=== PATIENT | male | born 1940 | race Hispanic/Latino ===

== ENCOUNTER 2016-06-18 12:46 | Inpatient (IN) | payer MEDICARE, OTHER ==
[2016-06-18 13:25] LABS: Blood Urea Nitrogen 31 mg/dL (9-20)
--- NOTE | 2016-06-18 14:30 | Cat Scan Report ---
CTA chest: Transverse images are obtained from lower chest to the upper abdomen with coronal and sagittal 2-D reformatted images and a 3-D MIP image. History: Renal cancer presenting with right chest wall bleeding related to a nonfunctioning vascular shunt. Comparison is made to the prior study of January 24, 2016. There is good opacification of the pulmonary vessels, cardiac chambers, thoracic aorta. There no pulmonary or cardiac chamber filling abnormalities. The thoracic aorta is normal in size and contour with smooth significant mural calcification. No adenopathy. The patient has a generally dilated air filled esophagus with a moderate hiatus hernia. On the prior study the patient had multiple noncalcified pulmonary nodules consistent with metastatic disease these have resolved. There is however a small right effusion with bibasilar atelectasis on the right which was not present. The patient has a right subclavian shunt which extends along the right chest wall and has been previously amputated near the lower chest. The distal portion was removed. Only the proximal few centimeters of the shunt are opacified and then occludes. There is swelling of the soft tissues around the proximal shunt with a small amount of gas noted within the shunt and also around the shunt. At the level of the hemidiaphragm the shunt is occluded and amputated. There is additional gas within and around the shunt at this location and there appears to be ulceration of the wall and a bandage. Compared to the prior examination the swelling of the soft tissues and the air are new. Sections in the upper abdomen demonstrates a stable small left hepatic lobe cyst. There is a right nephrectomy. Impressions: 1. The amputated right axillary shunt demonstrates signs of diffuse infection. 2. Interval resolution of metastatic pulmonary nodules. 3. Interval development of right basilar pulmonary atelectasis and effusion.
[2016-06-18] MEDS ORDERED: NARCAN 0.4 MG/1 ML IV PRN (15:52)
[2016-06-18] MEDS ORDERED: MORPHINE IV PRN ×2 (15:52)
[2016-06-18] MEDS ORDERED: NORCO 5/325 PO PRN (15:52)
--- NOTE | 2016-06-18 16:36 | History and Physical Report ---
History of Present Illness Date of examination: 06/18/16 History of present illness: This patient is a 75-year-old male that presented to our office with a same day appointment due to an acute onset of bleeding from a broken down right flank incision. The patient is well-known to our service. He's had multiple vascular surgeries in the past. He has a thrombosed right axillary to femoral bypass which was partially resected in the past. His mid flank access incision has since broken down. He developed bright red bleeding from the incision last night which has since stopped. Following evaluation in our office , a stat CT scan was ordered. This shows gas surrounding the graft material. He will be admitted with concerns of a bypass graft infection. Past History Past Medical History: cancer (renal cancer), hypertension, hyperlipidemia, PVD, other (cardiomyopathy) Past Surgical History: Other (Multiple vascular procedures in the past including an aortobifemoral bypass, femorofemoral bypass, multiple bypass graft thrombectomies (both open and percutaneous), re-operative bypass procedures, bilateral [id number] amputation, nephrectomy) Social history: , lives with family. denies: smoking (quit smoking several years ago), alcohol abuse (drinks alcohol occasionally) Family history: hypertension Medications and Allergies Allergies Allergy/AdvReac Type Severity Reaction Status Date / Time adhesive tape Allergy Rash Verified 08/26/15 11:36 folic acid Allergy Rash Verified 04/26/15 10:28 latex Allergy Rash Verified 09/12/14 10:02 penicillin G Allergy Rash Verified 09/12/14 10:02 Home Medications Medication Instructions Recorded Confirmed Last Taken Type Simvastatin 20 mg PO HS 08/13/14 02/18/16 02/17/16 History 20mg Multivitamin [Multi-Vitamin Daily] 1 tab PO DAILY 09/12/14 02/18/16 02/17/16 History 1 tab Escitalopram [Lexapro] 10 mg PO DAILY 04/11/15 02/18/16 02/17/16 History 10mg Gabapentin 600 mg PO TID 04/11/15 02/18/16 02/17/16 History 600mg Amiodarone [Cordarone 200 MG TAB] 200 mg PO BID #60 tablet 05/02/15 06/17/15 Unknown Rx Furosemide [Lasix TAB] 20 mg PO QDAY #30 tablet 05/02/15 06/17/15 Unknown Rx ISOSORBIDE MONOnitrate [Imdur ER] 30 mg PO QDAY #30 tablet 05/02/15 02/18/1610/27 Rx 30mg Metoprolol [Lopressor TAB] 25 mg PO BID #60 tablet 05/02/15 06/17/15 Unknown Rx Ranolazine ER [Ranexa ER] 500 mg PO BID #60 tablet 05/02/15 06/17/15 Unknown Rx Warfarin [Coumadin] 3 mg PO DAILY@1700 #30 tablet 05/02/15 06/17/15 Unknown Rx oxyCODONE /ACETAMINOPHEN [Percocet 1 tab PO Q4H PRN #30 tablet 05/02/15 Unknown Rx 5/325 mg] Lisinopril [Zestril TAB] 20 mg PO QDAY 06/18/15 02/18/16 02/18/16 05:30 History Temazepam 15 mg PO QHS PRN 06/18/15 02/18/16 02/17/16 History 15mg Dabigatran [Pradaxa] 150 mg PO BID #60 capsule 06/24/15 02/18/16 02/15/16 Rx 150mg Aspirin EC [Aspirin Enteric Coated 81 mg PO QDAY 02/18/16 02/18/16 02/11/16 History TAB] 81mg Oxycodone HCl/Acetaminophen 1 tab PO Q6H 02/18/16 02/18/16 02/18/16 07:59 History [OxyCODONE-Acetaminophen 10-325] 1 tab Active Meds: Active Medications Acetaminophen/Hydrocodone Bitart (Walker 5/325) 2 each PO Q6H PRN PRN Reason: Pain, Moderate (4-6) Levofloxacin/Dextrose (Levaquin 750mg/150ml) 150 mls @ 100 mls/hr IV Q24HR DONN PRN Reason: Protocol Vancomycin HCl (Vancomycin/Ns 1 Gm/250 Ml) 250 mls @ 167 mls/hr IV ONCE ONE Stop: 06/18/16 18:29 Morphine Sulfate (Morphine) 2 mg IV Q4H PRN PRN Reason: Pain, Moderate (4-6) Morphine Sulfate (Morphine) 4 mg IV Q4H PRN PRN Reason: Pain , Severe (7-10) Naloxone HCl (Narcan 0.4 Mg/1 Ml) 0.1 mg IV Q2MIN PRN PRN Reason: Res Rate </= 8 or 02 SAT < 92% Review of Systems All systems: negative Exam - Constitutional General appearance: Present: no acute distress - EENT Eyes: Present: EOM intact ENT: hearing intact - Neck Neck: Present: supple - Respiratory Respiratory effort: normal - Extremities Extremities: abnormal (bilateral [id number] amputation) - Abdominal General gastrointestinal: Present: soft (is a right mid flank incision without surrounding erythema, and no appreciated active drainage. He has a retained portion of the axillofemoral bypass superior to this incision) - Psychiatric Psychiatric: appropriate mood/affect, intact judgment & insight, cooperative - Neurologic Neurologic: no focal deficits Results - Labs CBC & Chem 7: 06/18/16 13:05 Labs: Abnormal lab results 06/18/16 Range/Units 13:05 BUN 31 H (9-20) mg/dL Assessment and Plan This patient is a vasculopath status post multiple vascular procedures in the past. This included a right axillary to femoral artery bypass which subsequently thrombosed and required partial resection due to infection. He has since broken down a mid right flank incision. He developed acute onset of bright red bloody drainage from the incision last night. This subsequently stopped. He followed up in our office. A stat CT scan was ordered. This showed perigraft gas concerning for bypass infection. This bleeding may represent a Daniel bleed. The patient will be admitted. We'll place a consult to infectious disease service. We'll consider partial graft excision versus complete removal with arterial patch angioplasty. Unfortunately, the patient is relatively frail and currently on chemotherapy. Excision of the full graft would be an extensive procedure which he may not tolerate. This has been discussed with the patient as well as his . They state understanding, and agreed to proceed. - Patient Problems (1) Infection of vascular bypass graft Current Visit: No Status: Acute Qualifiers: Encounter type: initial encounter Qualified Code(s): T82.7XXA - Infection and inflammatory reaction due to other cardiac and vascular devices, implants and grafts, initial encounter (2) Cardiomyopathy Current Visit: No Status: Chronic (3) HTN (hypertension) Current Visit: No Status: Chronic Qualifiers: Hypertension type: essential hypertension Qualified Code(s): I10 - Essential (primary) hypertension (4) Hyperlipidemia Current Visit: No Status: Chronic Qualifiers: Hyperlipidemia type: unspecified hyperlipidemia Qualified Code(s): E78.5 - Hyperlipidemia, unspecified (5) Kidney malignancy Current Visit: Yes Status: Acute (6) Atherosclerosis of [place] artery of extremity Current Visit: Yes Status: Acute
[2016-06-18] MEDS ORDERED: VANCOMYCIN/NS 1 GM/250 ML 250 ML IV ONE (17:00)
[2016-06-18 17:11] LABS: Hematocrit 29.2 % (35.5-45.6); Hemoglobin 9.6 gm/dl (11.8-15.2); Mean Corpuscular HGB Conc 33 % (32-34); Mean Corpuscular Hemoglobin 34 pg (28-32); Mean Corpuscular Volume 103 fl (84-94); Platelet Count 117 K/mm3 (140-440); Red Blood Count 2.83 M/mm3 (3.65-5.03); Red Cell Distribution Width 20.6 % (13.2-15.2); White Blood Count 7.1 K/mm3 (4.5-11.0)
[2016-06-18 17:21] LABS: INR 1.18 (0.87-1.13)
[2016-06-18 17:22] LABS: Partial Thromboplastin Time 29.5 Sec. (24.2-36.6)
[2016-06-18 17:27] LABS: Anion Gap 15 mmol/L; Blood Urea Nitrogen 30 mg/dL (9-20); Calcium 7.6 mg/dL (8.4-10.2); Carbon Dioxide 28 mmol/L (22-30); Chloride 100.5 mmol/L (98-107); Glucose 126 mg/dL (75-100); Potassium 4.7 mmol/L (3.6-5.0); Sodium 139 mmol/L (137-145)
[2016-06-18] MEDS: LEVAQUIN 750MG/150ML 150 ML IV SCH (18:38)
[2016-06-18] MEDS ORDERED: NEURONTIN PO SCH (22:00)
[2016-06-18] MEDS: PERCOCET 5/325 PO PRN (22:08)
[2016-06-18] MEDS ORDERED: ASPIRIN PO ONE (22:26)
[2016-06-18] MEDS: RESTORIL PO PRN (23:23)
[2016-06-18] MEDS: ZOCOR PO SCH (23:23)
[2016-06-18] MEDS: NEURONTIN PO SCH (23:26)
--- NOTE | 2016-06-19 09:02 | Admit Criteria Form ---
Admission Criteria Documentation: AMBULATORY SURGERY EXCEPTION CRITERIA Ambulatory Surgery Exception Criteria ( Place 'X' for any and all applicable criteria): Surgery or procedure performed on ambulatory basis may require inpatient stay for[A] ANY ONE of the following(1)(2)(3)(4)(5)(6)(7)(8)(9): [X] I. A preoperative situation, condition, or finding that warrants inpatient stay as indicated by ANY ONE of the following: [X] a) Inpatient care needed because of severity of a disease or condition rather than the surgery (eg, severe cardiac or respiratory disease, severe infection) (15) (16 ) (17) (18) [] b) Emergent procedure (eg, angioplasty for acute ischemia)(19) [] c) Complex surgical approach or situation as indicated by ANY ONE of the following(3): [] i) Open approach needed instead of usual endoscopic, transcatheter, or other less invasive procedure [] ii) Difficult approach because of previous operation [] iii) Airway monitoring required after open neck procedures(20)(21) [] iv) Large mass requiring unusually extensive dissection [] v) Additional complicating feature requiring inpatient care (eg, drain management)(22(23): [] d) Major surgery in a pt with high anesthetic risk as indicated by ANY ONE of the following (2)(3)(5)(7)(8): [] i) ASA risk class III or higher (severe systemic disease impairing function) [D] [] ii) Advanced age (eg, older than 85 years)(14)(24) [] iii) Symptomatic heart failure(25) [] iv) Symptomatic asthma or COPD(8)(21) [] v) Morbid obesity with hemodynamic or respiratory problems(20)( 21)(26)(27) [] vi) Obstructive sleep apnea(20)(21) [] vii) Former premature infants who are younger than 60 weeks [] viii) High risk for severe postoperative abnormalities (eg, severe postoperative hypocalcemia after parathyroidectomy for severe hyperparathyroidism)(27)( 28) [] ix) Unstable angina(25) [] e) Drug-related risk requiring inpatient stay as indicated by ANY ONE of the following(5)(10)(14)(32)(33) [] i) Procedure requires discontinuing drugs or other therapy (eg , antiarrhythmic medication, antiseizure medication), which necessitates inpatient observation or treatment.(18)(31) [] ii) Major surgery and high risk drug use as indicated by ANY ONE of the following: [] 1) Active abuse of cocaine or similar drug [] 2) Monoamine oxidase inhibitor use [] 3) Other drug identified as posing risk [] f) Inadequate outpatient care situation as indicated by ANY ONE of the following(5)(10)(14)(32)(33) [] i) Patient lives remote from medical facility and procedure has urgent complication potential, and temporary nearby residence cannot be arranged [] ii) Patient will have postprocedure incapacitation and inadequate assistance at home, or alternative level of care cannot be arranged. [] iii) Patient will have long general anesthesia or procedure side effect resolution time, and competent person to stay with patient on first postoperative night at home or alternative level of care cannot be arranged. []iv) Other inadequate outpatient situation that cannot be handled by other means [] II. A perioperative event, condition, or finding that warrants inpatient stay as indicated by ANY ONE of the following (1)(2)(3): [] a) Inadequate physiologic recovery: cardiovascular, respiratory, or hemodynamic status not normal or near preoperative baseline(18) [] b) Hemodynamic instability [] c) Patient not alert with near normal or baseline mental status [] d) Temperature not normal or as expected and not appropriate for outpatient treatment of condition [] e) Ambulatory or appropriate activity level status not yet achieved post procedure [E](34)(35)(36) [] f) Operative site not appropriate (eg, unexpected or excessive drainage or bleeding) [] g) Postoperative effects not resolved or adequately managed (eg, significant pain or vomiting not appropriate for outpatient or next level of care)(10)(12) [] h) Complicating features requiring inpatient care as indicated by ANY ONE of the following(37): [] i) Severe complications of procedure (eg, bowel injury, airway compromise, vascular injury,severe hemorrhage) [] ii) Extensive (eg, dissection far beyond usual scope of procedure ) or prolonged (eg, 120 minutes beyond usual) surgery needed requiring inpatient postoperative care [] iii) Conversion to an open or complex procedure that requires inpatient care (eg, open vs laparoscopic cholecystectomy, abdominal vs vaginal hysterectomy)(38) [] iv) Comorbid condition or test result identified during or post procedure that requires inpatient care (7) [] v) Malignant hyperthermia(30) [] vi) Other complicating feature requiring inpatient care(22)(23) Inpatient stay may be needed until ALL of the following are present (1)(2)(3)(4) (5)(6)(10)(14)(33)(40): []a) Physiologic recovery: cardiovascular, respiratory, and hemodynamic status normal or near preoperative baseline []b) Hemodynamic stability []c) Patient alert, with near normal or baseline mental status []d) Temperature appropriate: patient afebrile or temperature appropriate for outpt treatment of condition []e) Activity level appropriate: ambulatory or appropriate activity level post procedure []f) Operative site appropriate as indicated by ALL of the following: []i) Site dry or with expected drainage []ii) Any blood noted is as expected for procedure. []g) Postoperative effects resolved or managed as indicated by ALL of the following: []i) Pain management appropriate for outpatient (or next level of) care(10) []ii) Minimal nausea and vomiting: if present, successfully treated with oral medication(12) []iii) Headache, dizziness, or drowsiness (if present) are mild. []h) Voiding status acceptable as indicated by ANY ONE of the following: []i) Voiding spontaneously []ii) No voiding but instructions given for follow-up in 6 to 8 hours []iii) Urinary catheter in place, and instructions given for follow-up []i) Complicating features requiring inpatient care manageable at a lower level of care(37) []j) Comorbid conditions manageable at a lower level of care(37) The original [employer] content created by [employer] has been revised. The portions of the content which have been revised are identified through the use of italic text or in bold, and [facility] has neither reviewed nor approved the modified material. All other unmodified content is copyright [employer]. Please see references footnoted in the original [employer] edition 2016 Admission Criteria Met: Yes
[2016-06-19] MEDS: IMDUR PO SCH (09:24)
[2016-06-19] MEDS: PERCOCET 5/325 PO PRN ×2 (09:25→21:16)
[2016-06-19] MEDS: ZESTRIL PO SCH (09:25)
--- NOTE | 2016-06-19 09:42 | Anesthesia Consultation ---
Anesthesia Consult and Med Hx Date of service: 06/19/16 - Airway Anesthetic Teeth Evaluation: Edentulous ROM Head & Neck: Adequate Mental/Hyoid Distance: Adequate Mallampati Class: Class III Intubation Access Assessment: Possibly Difficult - Pulmonary Exam CTA: Yes - Cardiac Exam Cardiac Exam: RRR - Pre-Operative Health Status ASA Pre-Surgery Classification: ASA3 Proposed Anesthetic Plan: General - Pre-Anesthesia Comment Pre-Anesthesia Comments: s/p bilateral AKA due to PVD. Kidney CA s/p right kidney removed, on going chemotherapy, in remission. Lung metastases, but shows no symptoms for now. - Pulmonary Hx Smoking: Yes (Quit 3 yrs ago; 55+ years smoking) Hx Asthma: No Hx Respiratory Symptoms: (Moderate pulm HTN) SOB: No COPD: No Hx Pneumonia: No Hx Sleep Apnea: No - Cardiovascular System Hx Hypertension: Yes Hx Coronary Artery Disease: Yes (EF 40-45%) Hx Heart Attack/AMI: Yes (post-op 04/2015) Hx Angina: No Hx Cardia Arrhythmia: Yes (Parox. A. Fib; EKG SB, ST-Twave changes, prolonged QT ) Hx Pacemaker: No Hx Peripheral Vascular Disease: Yes (PAD Left AKA and Right AKA 04/11/15) - Central Nervous System Hx Neuromuscular Disorder: No Hx Seizures: Yes (X 1 POST OP SURGERY HAD EXCESSIVE BLOOD LOSS) CVA: No Hx Psychiatric Problems: No - Gastrointestinal Hx Gastroesophageal Reflux Disease: Yes (small Hiatal Hernia, occassional TUMS) - Endocrine Hx Renal Disease: Yes (Rt kidney removed due to CA) Hx End Stage Renal Disease: No Hx Insulin Dependent Diabetes: No Hx Non-Insulin Dependent Diabetes: No - Hematic Hx Anemia: Yes Hx Sickle Cell Disease: No - Other Systems Hx Alcohol Use: Yes (8 oz or more bourbon DAILY and also drinks whiskey) Hx Substance Use: No Hx Cancer: Yes (Kidney CA s/p rt kidney removed, in remission, ) Hx Obesity: No - Additional Comments Anesthesia Medical History Comments: NAC
--- NOTE | 2016-06-19 09:44 | Anesthesia Day of Surgery ---
Anesthesia Day of Surgery - Day of Surgery Patient Examined: Yes Patient H&P Reviewed: Yes Patient is NPO: Yes
[2016-06-19] MEDS ORDERED: DILAUDID IV PRN (10:43)
[2016-06-19] MEDS ORDERED: ZOFRAN IV PRN (10:43)
[2016-06-19] MEDS: VERSED IV NR ×3 (10:55→15:40)
[2016-06-19] MEDS: NACL 0.9% 1000 ML 1,000 ML IV SCH ×2 (10:55→20:32)
[2016-06-19] MEDS ORDERED: PEPCID PO NR (11:00)
[2016-06-19] MEDS ORDERED: NEO SYNEPHRINE/NS Syringe(OR USE) IV ONE (12:00)
[2016-06-19] MEDS ORDERED: ZOFRAN IV ONE (13:00)
[2016-06-19] MEDS ORDERED: NACL 0.9% 500 ML ONE (13:30)
[2016-06-19] MEDS ORDERED: DIPRIVAN 10 MG/ML IV ONE (14:53)
[2016-06-19] MEDS ORDERED: DILAUDID ONE (14:53)
[2016-06-19] MEDS ORDERED: ZEMURON IV ONE (14:53)
[2016-06-19] MEDS ORDERED: XYLOCAINE MPF 2% ONE ×2 (15:11→18:44)
[2016-06-19] MEDS ORDERED: NACL 0.9% 1000 ML 1,000 ML ONE (15:18)
[2016-06-19] MEDS ORDERED: ePHEDrine SULFATE ONE (16:03)
[2016-06-19] MEDS: NEURONTIN PO SCH ×2 (16:15→21:17)
[2016-06-19] MEDS: BABY ASPIRIN PO SCH (16:16)
[2016-06-19] MEDS: LEXAPRO PO SCH (16:16)
[2016-06-19] MEDS: LEVAQUIN 750MG/150ML 150 ML IV SCH ×2 (16:16→20:33)
[2016-06-19] MEDS ORDERED: NACL 0.9% IR ONE (16:30)
[2016-06-19] MEDS ORDERED: MARCAINE-EPI 0.5%-1:200,000 INFILTRATI ONE ×2 (16:30)
[2016-06-19] MEDS ORDERED: HEPARIN 10,000 UNITS/10 ML IV ONE (16:30)
[2016-06-19] MEDS ORDERED: ROBINUL ONE (18:44)
[2016-06-19] MEDS ORDERED: ZOFRAN ONE (18:45)
[2016-06-19] MEDS ORDERED: BLOXIVERZ ONE (18:45)
--- NOTE | 2016-06-19 19:22 | Operative Report ---
Operative Report Operative Report: Operative note: Date: 06/19/2016 Preoperative diagnosis: Infected right axillofemoral graft Postoperative diagnosis: Same. Operation: Excision of infected right axillofemoral graft. Repair of right axillary artery with vein patch. Surgeon: Paulina Brown. Asst.:. Dr. Brendan Murillo Anesthesia: Gen. EBL: 50 mL Findings: Infected right axillofemoral graft remnant with purulence in the tract Indications: 75-year-old gentleman with partially excised previously axillofemoral graft developed bleeding from the tract over remnant. On CT scan signs of colon graft remnant being infected with high risk bleeding. Patient was explained risks and benefits of procedure chills to proceed, signed informed consent. Operative details: She was brought to the operating room, placed in supine position with the right arm extended on an arm table. Gen. anesthesia done by anesthesia providing. Right arm and right sides of chest and abdomen were prepped and draped in sterile fashion. Timeout performed and all team members in agreement. Right arm incision over the basilic vein in the distal part was made with 15 blade and carried down with electrocautery. Basilic vein was identified and ligated and both an inch is excised. Right upper chest incision was made with 10 blade over previous scar involved centimeter inferior to the clavicle extending over the deltopectoral groove about 12 cm in length. Skin down with electrocautery . The fascia was divided and pectoralis major muscle was spread. Axillary vein was identified and preserved. Dissection was carried further dissecting axillary artery. Anastomosis was identified from previous ax-fem graft. She was heparinized with 3000 units of heparin. Proximal and distal control of the artery was gained with vessel loops and angled [place]y vascular clamps. After was delivered into the wound identifying purulent discharge from the tract. Graft was not incorporated and grossly infected. It was disconnected from the artery and passed for cultures. Fluid was sent for cultures also. The vein patch was created from base of basilic vein and sutured to axillary artery creating a vein patch using 5-0 C1 Prolene suture. Hemostasis was achieved. Wound was copiously irrigated with some saline. The infected tract was closed 3 -0 Vicryl stitch. The wound was repaired in layers with Vicryl running stitch approximating the pectoral fascia. Skin was closed using andreea. Right arm was closed with 2 layers. Vicryl in subcutaneus layer and andreea on the skin. Infected tract was irrigated and Irving drain inserted. All counts were correct 2. Patient tolerated procedure well, was extubated and transferred to PACU in stable condition.
--- NOTE | 2016-06-19 19:53 | Post Anesthesia Evaluation ---
- Post Anesthesia Evaluation Patient Participated: Yes Airway Patent: Yes Stable Respiratory Function: Yes Temp > 96.8F: Yes Pain Manageable: Yes Adequeate Hydration: Yes Anesthesia Complications: No Block Receding Appropriately: Not Applicable
[2016-06-19] MEDS ORDERED: NACL 0.9% 1000 ML 1,000 ML IV SCH (20:30)
[2016-06-19] MEDS: ZOCOR PO SCH (21:17)
[2016-06-19] MEDS: RESTORIL PO PRN (21:19)
[2016-06-19] MEDS ORDERED: ZOCOR PO SCH (22:00)
[2016-06-20] MEDS: PERCOCET 5/325 PO PRN ×3 (04:47→15:25)
[2016-06-20] MEDS: IMDUR PO SCH (10:15)
[2016-06-20] MEDS: LEXAPRO PO SCH (10:15)
[2016-06-20] MEDS: NEURONTIN PO SCH ×3 (10:15→22:05)
[2016-06-20] MEDS: BABY ASPIRIN PO SCH (10:16)
[2016-06-20] MEDS: ZESTRIL PO SCH (10:17)
[2016-06-20] MEDS: LEVAQUIN 750MG/150ML 150 ML IV SCH (10:17)
[2016-06-20 11:09] LABS: Hematocrit 25.4 % (35.5-45.6); Hemoglobin 8.1 gm/dl (11.8-15.2); Mean Corpuscular HGB Conc 32 % (32-34); Mean Corpuscular Hemoglobin 34 pg (28-32); Mean Corpuscular Volume 106 fl (84-94); Platelet Count 102 K/mm3 (140-440)
[2016-06-20 11:23] LABS: Anion Gap 16 mmol/L; Blood Urea Nitrogen 20 mg/dL (9-20); Calcium 6.7 mg/dL (8.4-10.2); Carbon Dioxide 22 mmol/L (22-30); Chloride 103.4 mmol/L (98-107); Glucose 145 mg/dL (75-100); Potassium 3.8 mmol/L (3.6-5.0); Sodium 138 mmol/L (137-145)
[2016-06-20 11:28] LABS: Red Cell Distribution Width 21.6 % (13.2-15.2)
--- NOTE | 2016-06-20 12:50 | Consultation ---
History of Present Illness - Reason for Consult Consult date: 06/20/16 Infected vascular graft Requesting physician: KIM AMATO - History of Present Illness Mr. Gant is a 74-year-old male with a long-standing history of peripheral vascular disease for which he has had multiple vascularization surgeries including an aortobifemoral artery bypass, fem-fem crossover, right axillary femoral bypass and multiple thrombectomies and is status post a left above-the- knee amputation on 07/15/11 and right [id number] amputation on 04/12/15 who was admitted to [facility] on 06/18/[address] Amato's office with bleeding from his right flank incision and a CT scan showed air around the vascular graft. He was taken to the OR on 06/[address] Brown and underwent e xcision of an infected right axillofemoral graft and repair of the right axillary artery with vein patch. An infected right axillofemoral graft remnant with purulence in the tract was described. He had previously had partial excission of the thrombosed right axillofemoral graft. Currently he is quite sleepy but will arouse and answer questions appropriately. He has no discernoble complaints. Review of systems General: No fevers or chills, no change in appetite, no weight change HEENT: no odynophagia, no dysphagia, no oral lesions, no vision changes CV: no chest pain, no palpitations Chest: no dyspnea, no cough GI: no abdominal pain, no N/V, no diarrhea : no change in urinary frequency, no dysuria, no hematuria Skin: no rashes; Ext: see HPI Neuro: no headaches, no numbness/tingling, no tremors Endocrine: No history of diabetes. Psych: no anxiety, no depression Infectious diseases: No HIV risk factors, No history of STDs, No significant travel or animal contact history. Past History Past Medical History: cancer (renal cancer), hypertension, hyperlipidemia, PVD, other (cardiomyopathy) Past Surgical History: Other (Multiple vascular procedures in the past including an aortobifemoral bypass, femorofemoral bypass, multiple bypass graft thrombectomies (both open and percutaneous), re-operative bypass procedures, bilateral [id number] amputation, nephrectomy) Social history: , lives with family. denies: smoking (quit smoking several years ago), alcohol abuse (drinks alcohol occasionally) Family history: hypertension Medications and Allergies Allergies Allergy/AdvReac Type Severity Reaction Status Date / Time adhesive tape Allergy Rash Verified 08/26/15 11:36 folic acid Allergy Rash Verified 04/26/15 10:28 latex Allergy Rash Verified 09/12/14 10:02 penicillin G Allergy Rash Verified 09/12/14 10:02 Home Medications Medication Instructions Recorded Confirmed Last Taken Type Simvastatin 20 mg PO HS 08/13/14 02/18/16 02/17/16 History 20mg Multivitamin [Multi-Vitamin Daily] 1 tab PO DAILY 09/12/14 02/18/16 02/17/16 History 1 tab Escitalopram [Lexapro] 10 mg PO DAILY 04/11/15 02/18/16 02/17/16 History 10mg Gabapentin 600 mg PO TID 04/11/15 02/18/16 02/17/16 History 600mg Amiodarone [Cordarone 200 MG TAB] 200 mg PO BID #60 tablet 05/02/15 06/17/15 Unknown Rx Furosemide [Lasix TAB] 20 mg PO QDAY #30 tablet 05/02/15 06/17/15 Unknown Rx ISOSORBIDE MONOnitrate [Imdur ER] 30 mg PO QDAY #30 tablet 05/02/15 02/18/1610/27 Rx 30mg Metoprolol [Lopressor TAB] 25 mg PO BID #60 tablet 05/02/15 06/17/15 Unknown Rx Ranolazine ER [Ranexa ER] 500 mg PO BID #60 tablet 05/02/15 06/17/15 Unknown Rx Warfarin [Coumadin] 3 mg PO DAILY@1700 #30 tablet 05/02/15 06/17/15 Unknown Rx oxyCODONE /ACETAMINOPHEN [Percocet 1 tab PO Q4H PRN #30 tablet 05/02/15 Unknown Rx 5/325 mg] Lisinopril [Zestril TAB] 20 mg PO QDAY 06/18/15 02/18/16 02/18/16 05:30 History Temazepam 15 mg PO QHS PRN 06/18/15 02/18/16 02/17/16 History 15mg Dabigatran [Pradaxa] 150 mg PO BID #60 capsule 06/24/15 02/18/16 02/15/16 Rx 150mg Aspirin EC [Aspirin Enteric Coated 81 mg PO QDAY 02/18/16 02/18/16 02/11/16 History TAB] 81mg Oxycodone HCl/Acetaminophen 1 tab PO Q6H 02/18/16 02/18/16 02/18/16 07:59 History [OxyCODONE-Acetaminophen 10-325] 1 tab Active Meds: Active Medications Aspirin (Baby Aspirin) 81 mg PO QDAY [facility] Last Admin: 06/20/16 10:16 Dose: 81 mg Escitalopram Oxalate (Lexapro) 10 mg PO QDAY [facility] Last Admin: 06/20/16 10:15 Dose: 10 mg Gabapentin (Neurontin) 600 mg PO TID [facility] Last Admin: 06/20/16 10:15 Dose: 600 mg Levofloxacin/Dextrose (Levaquin 750mg/150ml) 150 mls @ 100 mls/hr IV Q24HR [facility] PRN Reason: Protocol Last Admin: 06/20/16 10:17 Dose: 100 mls/hr Isosorbide Mononitrate (Imdur) 30 mg PO QDAY [facility] Last Admin: 06/20/16 10:15 Dose: 30 mg Lisinopril (Zestril) 20 mg PO QDAY [facility] Last Admin: 06/20/16 10:17 Dose: 20 mg Morphine Sulfate (Morphine) 2 mg IV Q4H PRN PRN Reason: Pain, Moderate (4-6) Morphine Sulfate (Morphine) 4 mg IV Q4H PRN PRN Reason: Pain , Severe (7-10) Naloxone HCl (Narcan 0.4 Mg/1 Ml) 0.1 mg IV Q2MIN PRN PRN Reason: Res Rate </= 8 or 02 SAT < 92% Oxycodone/Acetaminophen (Percocet 5/325) 2 tab PO Q6H PRN PRN Reason: Pain, Moderate (4-6) Last Admin: 06/20/16 10:16 Dose: 2 tab Simvastatin (Zocor) 20 mg PO QHS [facility] Last Admin: 06/19/16 21:17 Dose: 20 mg Temazepam (Restoril) 15 mg PO QHS PRN PRN Reason: Sleep Last Admin: 06/19/16 21:19 Dose: 15 mg Physical Examination - Physical Exam Narrative exam: GENERAL: Well developed, well nourished appearing male who is sleepy but easily aroused and in NAD. He appears somewhat chronically ill. HEENT: Pupils are equal reactive to light and accommodation. There is no scleral icterus. Optic fundi are not examined. Tympanic membranes are normal. Oropharynx is normal with no evidence of oral candidiasis or pharyngitis. NECK: Supple. No enlargement of the thyroid gland. No significant cervical lymphadenopathy. No jugular venous distention at 30. LUNGS: Clear with no adventitious sounds. CHEST: Surgical dressings in place & drain in place with no signs of infection outside the margins. HEART: Irregularly, irregular rate. S1 and S2 are normal. There are no murmurs , gallops, clicks or rubs heard. ABDOMEN: Soft and nontender. Liver and spleen are not palpably enlarged or tender. No palpable masses. Bowel sounds are normoactive. Well-healed scar from previous surgeries. EXTREMITIES: Right and left AKA stumps are well healed and shows no signs of infection or ischemia. : Normal external male NEUROLOGIC: No focal findings. - Constitutional Vitals: Vital Signs Temp Pulse Resp BP Pulse Ox 97.8 F 62 16 126/59 95 06/20/16 10:14 06/20/16 10:15 06/20/16 10:14 06/20/16 10:17 06/20/16 12:14 Temperature -Last 24 Hours Temperature 97.8 F Temperature 98.2 F Temperature 97.4 F Temperature 97.6 F Temperature 97.2 F Temperature 99.1 F Temperature 98.2 F Results - Labs CBC & Chem 7: 06/20/16 10:52 06/20/16 10:52 Labs: Abnormal lab results Microbiology 06/19/16 19:27 Axilla - Right Surgical Biopsy Culture - Pending Gram stain: No WBC, NOS Assessment and Plan Current antibiotics: Levaquin 750 mg IV q24h 06/18 --> Previous antibiotics: Vancomycin 1 g IV X 1 06/18 ASSESSMENT: Mr. Gant is a 74-year-old male with a long-standing history of peripheral vascular disease for which he has had multiple vascularization surgeries including an aortobifemoral artery bypass, fem-fem crossover, right axillary femoral bypass and multiple thrombectomies and is status post a left above-the- knee amputation on 07/15/11 and right [id number] amputation on 04/12/15 who was admitted to [facility] on 06/18/[address] Amato's office with bleeding from his right flank incision and a CT scan showed air around the vascular graft. He was taken to the OR on 06/[address] Brown and underwent e xcision of an infected right axillofemoral graft and repair of the right axillary artery with vein patch. An infected right axillofemoral graft remnant with purulence in the tract was described. Problem list: 1. Infected right axillofemoral graft remnant -Status post removal 06/19 -Patrick pus around the graft was found 2. Status post right groin abscess & infected vascular graft - s/p drainage of deep soft tissue abscess of the right groin tracking to the knee amputation, removal of axillary to femoral artery bypass graft, removal of right common femoral to profunda femoral artery bypass graft with repair of profunda femoral artery, removal of right femoral to popliteal artery bypass graft and wound VAC application 06/19/15 - intraoperative cultures growing pansensitive enterococcus faecalis 3. Peripheral vascular disease - s/p multiple vascular procedures and revascularizations - s/p bilateral AKAs 4. Coronary artery disease - s/p NSTEMI 04/2015 5. Chronic atrial fibrillation - on chronic anticoagulation in the outpatient setting (on hold currently in light of surgery) 6. PCN allergy - patient with history of rash to PCN over 50 years ago 7. Chronic anemia -Likely multifactorial especially secondary to chronic disease 8. Thrombocytopenia -Present on admission -Rule out secondary to sepsis -Rule out other cause PLAN: 1. Await surgical cultures 2. Continue Levaquin 3. Will add back vancomycin as he has had Enteroccocus in his graft infections in the past 4. Local wound care and close observation 5. Follow platelets & work up further if they remain low Thank you for this consultation. We will follow with you. Dionicio Hylton MD [facility] Office: [phone]
--- NOTE | 2016-06-20 15:01 | Progress Note ---
Assessment and Plan Patient postop day 1 status post removal of infected femoral axillary bypass graft. His surgical sites look good. We'll plan on removal of drainage catheter tomorrow if there is no significant drainage. The patient will likely need a prolonged course of antibiotics given the length of the catheter tract infection. We'll defer to infectious disease for further evaluations. Patient may be discharged following appropriate antibiotics therapy and cessation of significant drainage from his chest wall drains. Subjective Date of service: 06/20/16 Principal diagnosis: Infected femoral axillary bypass graft Interval history: Past medical history is patient with a past medical history with significant peripheral vascular disease presents with an infected retained portion of a femoral axillary bypass graft. The patient underwent removal of his bypass graft and vein patch repair of his axillary artery yesterday. Bandages were removed from his axillary artery repair and chest wall drain. His arterial repair site is clean dry and intact with only scant amounts of drainage. A minimal amount of drainage is present in the sponges on the chest wall bandages. Both bandages were changed. His venous harvest site is soft with only subcutaneous bruising. Patient has no complaints of pain at any of his surgical sites. Right arm motor and sensation intact. Objective - Constitutional Vitals: Vital Signs - 12hr 06/20/16 06/20/16 06/20/16 06:27 10:00 10:14 Temperature 98.2 F 97.8 F Pulse Rate 55 L Pulse Rate [ 65 Left] Pulse Rate [ 62 Right Radial] Respiratory 18 16 Rate Blood Pressure Blood Pressure 122/60 [Left Arm] Blood Pressure 126/59 [Right Arm] O2 Sat by Pulse 99 96 Oximetry 06/20/16 06/20/16 06/20/16 10:15 10:17 12:14 Temperature Pulse Rate 62 Pulse Rate [ Left] Pulse Rate [ Right Radial] Respiratory Rate Blood Pressure 126/59 126/59 Blood Pressure [Left Arm] Blood Pressure [Right Arm] O2 Sat by Pulse 95 Oximetry General appearance: Present: no acute distress - EENT Eyes: PERRL ENT: hearing intact - Neck Neck: supple, normal ROM - Respiratory Respiratory effort: normal - Breasts Breasts: deferred Extremities: abnormal (bilateral AKA) - Gastrointestinal General gastrointestinal: Present: deferred Rectal Exam: deferred - Genitourinary Male genitourinary: deferred - Neurologic Neurologic: no focal deficits - Psychiatric Psychiatric: appropriate mood/affect, cooperative - Labs CBC & Chem 7: 06/20/16 10:52 06/20/16 10:52 Labs: Abnormal lab results 06/20/16 06/20/16 Range/Units 10:52 10:52 WBC 4.0 L (4.5-11.0) K/mm3 RBC 2.40 L (3.65-5.03) M/mm3 Hgb 8.1 L (11.8-15.2) gm/dl Hct 25.4 L (35.5-45.6) % MCV 106 H D (84-94) fl MCH 34 H (28-32) pg RDW 21.6 H (13.2-15.2) % Plt Count 102 L (140-440) K/mm3 Glucose 145 H (75-100) mg/dL Calcium 6.7 L (8.4-10.2) mg/dL
[2016-06-20] MEDS ORDERED: VANCOMYCIN VIAL IV SCH (22:00)
[2016-06-20] MEDS: ZOCOR PO SCH (22:04)
[2016-06-20] MEDS: RESTORIL PO PRN (22:05)
[2016-06-20] MEDS ORDERED: VANCOMYCIN/NS 1 GM/250 ML 250 ML IV SCH (23:00)
[2016-06-21] MEDS: PERCOCET 5/325 PO PRN ×4 (00:12→20:49)
[2016-06-21] MEDS: LEVAQUIN 750MG/150ML 150 ML IV SCH (09:08)
[2016-06-21] MEDS: NEURONTIN PO SCH ×3 (09:09→20:49)
[2016-06-21] MEDS: ZESTRIL PO SCH (09:09)
[2016-06-21] MEDS: IMDUR PO SCH (09:09)
[2016-06-21] MEDS: BABY ASPIRIN PO SCH (09:10)
[2016-06-21] MEDS: LEXAPRO PO SCH (09:10)
--- NOTE | 2016-06-21 12:01 | Progress Note ---
Assessment and Plan Patient doing well from a surgical standpoint. He'll be scheduled for PICC line placement tomorrow morning for long-term IV antibiotics therapy. Subjective Date of service: 06/21/16 Principal diagnosis: Infected femoral axillary bypass graft Interval history: Patient with no complaints. No significant drainage on patient's dressings. His drainage catheter was removed and additional dressing placed. Venous harvest site is soft with subcutaneous hematoma. Patient was noted to have MRSA. Objective - Constitutional Vitals: Vital Signs - 12hr 06/21/16 06/21/16 06/21/16 00:00 04:00 09:00 Temperature 97.7 F 98.0 F 97.8 F Pulse Rate [ 62 55 L 72 Left] Respiratory 18 18 20 Rate Blood Pressure Blood Pressure 117/58 114/55 157/68 [Left Arm] O2 Sat by Pulse 97 98 96 Oximetry 06/21/16 06/21/16 09:09 10:00 Temperature Pulse Rate [ Left] Respiratory Rate Blood Pressure 157/68 Blood Pressure [Left Arm] O2 Sat by Pulse 98 Oximetry General appearance: Present: no acute distress - EENT Eyes: PERRL ENT: hearing intact - Neck Neck: supple, normal ROM - Respiratory Respiratory effort: normal - Breasts Breasts: deferred Extremities: no ischemia, abnormal (bialteral AKA) - Gastrointestinal General gastrointestinal: Present: deferred Rectal Exam: deferred - Genitourinary Male genitourinary: deferred - Integumentary Integumentary: clear, warm - Neurologic Neurologic: no focal deficits - Psychiatric Psychiatric: appropriate mood/affect, cooperative - Labs CBC & Chem 7: 06/20/16 10:52 06/20/16 10:52
--- NOTE | 2016-06-21 17:15 | Progress Note ---
Assessment and Plan Current antibiotics: Vancomycin 1 gram IV q24h 06/20 --> Levaquin 750 mg IV q24h 06/18 --> Previous antibiotics: Vancomycin 1 g IV X 1 06/18 ASSESSMENT: Mr. Gant is a 74-year-old male with a long-standing history of peripheral vascular disease for which he has had multiple vascularization surgeries including an aortobifemoral artery bypass, fem-fem crossover, right axillary femoral bypass and multiple thrombectomies and is status post a left above-the- knee amputation on 07/15/11 and right [id number] amputation on 04/12/15 who was admitted to [facility] on 06/18/[address] Murillo's office with bleeding from his right flank incision and a CT scan showed air around the vascular graft. He was taken to the OR on 06/[address] Brown and underwent e xcision of an infected right axillofemoral graft and repair of the right axillary artery with vein patch. An infected right axillofemoral graft remnant with purulence in the tract was described. Problem list: 1. Infected right axillofemoral graft remnant -Status post removal 06/19 -Patrick pus around the graft was found 2. Status post right groin abscess & infected vascular graft - s/p drainage of deep soft tissue abscess of the right groin tracking to the knee amputation, removal of axillary to femoral artery bypass graft, removal of right common femoral to profunda femoral artery bypass graft with repair of profunda femoral artery, removal of right femoral to popliteal artery bypass graft and wound VAC application 06/19/15 - intraoperative cultures growing pansensitive enterococcus faecalis 3. Peripheral vascular disease - s/p multiple vascular procedures and revascularizations - s/p bilateral AKAs 4. Coronary artery disease - s/p NSTEMI 04/2015 5. Chronic atrial fibrillation - on chronic anticoagulation in the outpatient setting (on hold currently in light of surgery) 6. PCN allergy - patient with history of rash to PCN over 50 years ago 7. Chronic anemia -Likely multifactorial especially secondary to chronic disease 8. Thrombocytopenia -Present on admission -Rule out secondary to sepsis -Rule out other cause PLAN: 1. Continue vancomycin versus the isolated MRSA pending further sensitivity data 2. Will stop Levaquin at this point. 3. Discussed with Dr. Scott and patient will need prolonged IV antibiotics to treat the graft infection 4. Local wound care and close observation 5. Will recheck platelets tomorrow 6. Will look into home antibiotic therapy through our office Discussed with patient's . Dionicio Hylton MD [facility] Office: [phone] Subjective Date of service: 06/21/16 Principal diagnosis: Infected femoral axillary bypass graft Interval history: No complaints at present. No significant pain. Tolerating antibiotics well to date. ROS: No subjective fever or chills. No nausea, vomiting or diarrhea. No shortness of breath, cough or pleuritic chest pain Objective - Exam Narrative Exam: GENERAL: Well developed, well nourished appearing male who is sleepy but easily aroused and in NAD. He appears somewhat chronically ill. HEENT: Pupils are equal reactive to light and accommodation. There is no scleral icterus. Optic fundi are not examined. Tympanic membranes are normal. Oropharynx is normal with no evidence of oral candidiasis or pharyngitis. NECK: Supple. No enlargement of the thyroid gland. No significant cervical lymphadenopathy. No jugular venous distention at 30. LUNGS: Clear with no adventitious sounds. CHEST: Surgical dressings in place & drain in place with no signs of infection outside the margins. HEART: Irregularly, irregular rate. S1 and S2 are normal. There are no murmurs , gallops, clicks or rubs heard. ABDOMEN: Soft and nontender. Liver and spleen are not palpably enlarged or tender. No palpable masses. Bowel sounds are normoactive. Well-healed scar from previous surgeries. EXTREMITIES: Right and left AKA stumps are well healed and shows no signs of infection or ischemia. : Normal external male NEUROLOGIC: No focal findings. - Constitutional Vitals: Vital Signs Temp Pulse Resp BP Pulse Ox 97.5 F L 59 L 20 144/65 96 06/21/16 11:30 06/21/16 12:00 06/21/16 11:30 06/21/16 11:30 06/21/16 11:30 Temperature -Last 24 Hours Temperature 97.5 F Temperature 97.8 F Temperature 98.0 F Temperature 97.7 F Temperature 98.1 F Temperature 97.8 F - Labs CBC & Chem 7: 06/20/16 10:52 06/20/16 10:52 Labs: Microbiology 06/19/16 19:27 Axilla - Right Surgical Biopsy Culture - Preliminary Methicillin Resist S. Aureus (vancomycin ALICIA pending )
[2016-06-21] MEDS: ZOCOR PO SCH (20:50)
[2016-06-21] MEDS: RESTORIL PO PRN (20:50)
[2016-06-22] MEDS ORDERED: VANCOMYCIN/NS 1 GM/250 ML 250 ML IV SCH
[2016-06-22] MEDS: ZOCOR PO SCH (00:57)
[2016-06-22 08:01] LABS: Basophils % (Auto) 0.3 % (0.0-1.8); Eosinophils % (Auto) 2.1 % (0.0-4.3); Hematocrit 28.2 % (35.5-45.6); Hemoglobin 9.2 gm/dl (11.8-15.2); Mean Corpuscular HGB Conc 33 % (32-34); Mean Corpuscular Hemoglobin 35 pg (28-32); Mean Corpuscular Volume 107 fl (84-94); Platelet Count 106 K/mm3 (140-440); Red Blood Count 2.64 M/mm3 (3.65-5.03); White Blood Count 4.6 K/mm3 (4.5-11.0)
[2016-06-22 08:07] LABS: Red Cell Distribution Width 21.5 % (13.2-15.2)
[2016-06-22 09:13] VITALS: BP 185/81
[2016-06-22] MEDS: BABY ASPIRIN PO SCH (09:49)
[2016-06-22] MEDS: NEURONTIN PO SCH (09:49)
[2016-06-22] MEDS: LEXAPRO PO SCH (09:49)
[2016-06-22] MEDS: IMDUR PO SCH (09:49)
[2016-06-22] MEDS: ZESTRIL PO SCH (09:49)
[2016-06-22] MEDS: PERCOCET 5/325 PO PRN (09:50)
[2016-06-22] MEDS ORDERED: NACL 0.9% 250ML 250 ML ONE (10:32)
[2016-06-22] MEDS ORDERED: HEPARIN 10,000 UNITS/10 ML ONE (10:32)
[2016-06-22] MEDS ORDERED: HEPARIN/NS 5000 UNIT/500ML(CATH LAB) 500 ML IR ONE (10:32)
[2016-06-22] MEDS ORDERED: XYLOCAINE 1%/ EPI 1:100,000 INFILTRATI ONE (10:33)
--- NOTE | 2016-06-22 10:36 | Event Note ---
Date: 06/22/16 Patient is apparently off having a PICC placed. Surgical isolate culture with MRSA ( Vancomycin ALICIA = 1.00) Will see if we can arrange antibiotic through my office. This will rewuire 3x weekly visits. I will discuss this with the patient's .
[2016-06-22] MEDS ORDERED: SUBLIMAZE ONE (10:39)
[2016-06-22] MEDS ORDERED: BENADRYL ONE (10:45)
--- NOTE | 2016-06-22 11:01 | Operative Report ---
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 The patient was brought to the angiographic suite and placed in supine position on the examination table. Initial ultrasound evaluation of his left arm demonstrated a patent left brachial vein. The left arm was prepped and draped in the usual sterile fashion. 1% lidocaine was used for anesthesia. Under ultrasound guidance, a 7 cm 21-gauge needle was advanced into the left brachial vein. A 0.018 guidewire was then advanced into the IVC to document intravenous positioning under fluoroscopy. The needle was removed and a 5.5 Faroese peel-away sheath placed over the guidewire. Following standard guidewire measurements, the guidewire was removed and a Bard dual-lumen power PICC cut to length. The PICC was inserted through the sheath however, would not advance without the aid of the guidewire. The guidewire was then reinserted and together the PICC and guidewire advanced into the proximal right atrium. The guidewire was removed. The peel-away sheath was removed. Both ports flushed and aspirated easily and were then locked with sterile saline. The catheter was securely fastened of the skin surface using StatLock device and a sterile dressing applied. The patient tolerated the procedure well. There were no immediate post procedure complications. Conscious sedation was performed under the guidance of radiologic nursing. Continuous cardiopulmonary monitoring was utilized. IMPRESSION: 1) Ultrasound and fluoroscopic guided PICC placement via the left brachial vein
--- NOTE | 2016-06-22 11:49 | Discharge Summary ---
Providers - Providers Date of Admission: 06/18/16 15:52 Date of discharge: 06/22/16 Attending physician: KIM AMATO 06/18/16 15:52 Consult to Physician [CONS] Routine Consulting Provider: JOSELITO ROBERTS Reason For Exam: suspected ax-fem bypass infection Place consult to:: ARMANDO Notified:: ARMANDO Was contact made?: Yes Primary care physician: MAYURI MCKINNON Hospitalization Reason for admission: Infected Right Axillofemoral Bypass Graft Condition: Stable Procedures: Operative Report Operative Report: Operative note: Date: 06/19/2016 Preoperative diagnosis: Infected right axillofemoral graft Postoperative diagnosis: Same. Operation: Excision of infected right axillofemoral graft. Repair of right axillary artery with vein patch. Surgeon: Paulina Brown. Asst.:. Dr. Brendan Amato Anesthesia: Gen. EBL: 50 mL Findings: Infected right axillofemoral graft remnant with purulence in the tract Indications: 75-year-old gentleman with partially excised previously axillofemoral graft developed bleeding from the tract over remnant. On CT scan signs of colon graft remnant being infected with high risk bleeding. Patient was explained risks and benefits of procedure chills to proceed, signed informed consent. Operative details: She was brought to the operating room, placed in supine position with the right arm extended on an arm table. Gen. anesthesia done by anesthesia providing. Right arm and right sides of chest and abdomen were prepped and draped in sterile fashion. Timeout performed and all team members in agreement. Right arm incision over the basilic vein in the distal part was made with 15 blade and carried down with electrocautery. Basilic vein was identified and ligated and both an inch is excised. Right upper chest incision was made with 10 blade over previous scar involved centimeter inferior to the clavicle extending over the deltopectoral groove about 12 cm in length. Skin down with electrocautery . The fascia was divided and pectoralis major muscle was spread. Axillary vein was identified and preserved. Dissection was carried further dissecting axillary artery. Anastomosis was identified from previous ax-fem graft. She was heparinized with 3000 units of heparin. Proximal and distal control of the artery was gained with vessel loops and angled [place] vascular clamps. After was delivered into the wound identifying purulent discharge from the tract. Graft was not incorporated and grossly infected. It was disconnected from the artery and passed for cultures. Fluid was sent for cultures also. The vein patch was created from base of basilic vein and sutured to axillary artery creating a vein patch using 5-0 C1 Prolene suture. Hemostasis was achieved. Wound was copiously irrigated with some saline. The infected tract was closed 3 -0 Vicryl stitch. The wound was repaired in layers with Vicryl running stitch approximating the pectoral fascia. Skin was closed using andreea. Right arm was closed with 2 layers. Vicryl in subcutaneus layer and andreea on the skin. Infected tract was irrigated and [place] drain inserted. All counts were correct 2. Patient tolerated procedure well, was extubated and transferred to PACU in stable condition. 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 The patient was brought to the angiographic suite and placed in supine position on the examination table. Initial ultrasound evaluation of his left arm demonstrated a patent left brachial vein. The left arm was prepped and draped in the usual sterile fashion. 1% lidocaine was used for anesthesia. Under ultrasound guidance, a 7 cm 21-gauge needle was advanced into the left brachial vein. A 0.018 guidewire was then advanced into the IVC to document intravenous positioning under fluoroscopy. The needle was removed and a 5.5 [place] peel-away sheath placed over the guidewire. Following standard guidewire measurements, the guidewire was removed and a Bard dual-lumen power PICC cut to length. The PICC was inserted through the sheath however, would not advance without the aid of the guidewire. The guidewire was then reinserted and together the PICC and guidewire advanced into the proximal right atrium. The guidewire was removed. The peel-away sheath was removed. Both ports flushed and aspirated easily and were then locked with sterile saline. The catheter was securely fastened of the skin surface using StatLock device and a sterile dressing applied. The patient tolerated the procedure well. There were no immediate post procedure complications. Conscious sedation was performed under the guidance of radiologic nursing. Continuous cardiopulmonary monitoring was utilized. IMPRESSION: 1) Ultrasound and fluoroscopic guided PICC placement via the left brachial vein Hospital course: This patient is well-known to our service. He status post a previous right axillofemoral bypass which subsequently thrombosed. This was partially resected in the past due to an infection. He developed acute onset of bleeding from the previous incision near the retained graft. The patient was sent to the hospital where CT scan was ordered. This revealed gas surrounding the graft material suspicious for graft infection. Patient was admitted. A consult was placed in infectious disease service. Arrangements were completed for the patient to be taken to the operating room, where the above-stated procedure was performed and the graft was removed. Postoperatively he did well. He was initially transferred to the critical care unit and subsequently to the telemetry floor. The [place] drain which was placed intraoperatively was subsequently removed. A PICC line was placed for postoperative antibiotics. Discharged planning was completed, and the patient was stable for discharge on 06/22/2016. Disposition: DISCHARGED TO HOME OR SELFCARE - Discharge Diagnoses (1) Infection of vascular bypass graft Status: Acute Qualifiers: Encounter type: initial encounter Qualified Code(s): T82.7XXA - Infection and inflammatory reaction due to other cardiac and vascular devices, implants and grafts, initial encounter (2) Cardiomyopathy Status: Chronic (3) HTN (hypertension) Status: Chronic Qualifiers: Hypertension type: essential hypertension Qualified Code(s): I10 - Essential (primary) hypertension (4) Hyperlipidemia Status: Chronic Qualifiers: Hyperlipidemia type: unspecified hyperlipidemia (5) Kidney malignancy Status: Acute (6) Atherosclerosis of [place] artery of extremity Status: Acute Core Measure Documentation - Palliative Care Palliative Care/ Comfort Measures: Not Applicable - Core Measures Any of the following diagnoses?: none Exam - Constitutional Vitals: Temp Pulse Resp BP Pulse Ox 97.8 F 47 L 18 185/81 99 06/22/16 09:12 06/22/16 09:12 06/22/16 09:12 06/22/16 09:12 06/22/16 09:12 General appearance: Present: no acute distress - EENT Eyes: Present: EOM intact ENT: hearing intact - Neck Neck: Present: supple - Respiratory Respiratory effort: normal - Extremities Extremities: no ischemia - Psychiatric Psychiatric: appropriate mood/affect, intact judgment & insight, cooperative Plan Activity: advance as tolerated Weight Bearing Status: Weight Bear as Tolerated Diet: regular Wound: keep clean and dry, change dressing (daily) Follow up with: KIM AMATO MD [Staff Physician] - 14 Days LAMONT PENNINGTON MD [Staff Physician] - 48 Hours (f/u for abx at infusion center)
--- NOTE | 2016-06-23 07:53 | Vascular Lab Report ---
MISCELLANEOUS VESSEL IDENTIFICATION: COMMENTS ON THE SCAN: The left brachial vein was identified and under real-time ultrasound guidance was cannulated. IMPRESSION: Successful ultrasound guided vein cannulation.
== END 2016-06-22 13:30 | disposition home or self-care (01) | DRG 253 ==
LOC: CT 12:46 → UNDOADMIN 15:43 → 4A 15:43 → UNDOADMIN 15:52 → 4A 15:52
PROVIDERS: ADMIT Surgery Vascular Surgery; ATTEND Surgery Vascular Surgery
PROC: 03B50ZZ Excision of Right Axillary Artery, Open Approach (ICD-10-PCS; principal; 2016-06-19)
PROC: 05BB0ZZ Excision of Right Basilic Vein, Open Approach (ICD-10-PCS; 2016-06-19)
PROC: 03U Upper Arteries, Supplement (ICD-10-PCS; 2016-06-19)
PROC: B54NZZA Ultrasonography of Left Upper Extremity Veins, Guidance (ICD-10-PCS; 2016-06-22)
PROC: 02H633Z Insertion of Infusion Device into Right Atrium, Percutaneous Approach (ICD-10-PCS; 2016-06-22)
PROC: B51N1ZA Fluoroscopy of Left Upper Extremity Veins using Low Osmolar Contrast, Guidance (ICD-10-PCS; 2016-06-22)
DX: T82.7XXA Infection and inflammatory reaction due to other cardiac and vascular devices, implants and grafts, initial encounter (principal); I42.9 Cardiomyopathy, unspecified; C64.9 Malignant neoplasm of unspecified kidney, except renal pelvis; I10 Essential (primary) hypertension; E78.5 Hyperlipidemia, unspecified; I70.209 Unspecified atherosclerosis of native arteries of extremities, unspecified extremity; I27.2 Other secondary pulmonary hypertension; I25.10 Atherosclerotic heart disease of native coronary artery without angina pectoris; K21.9 Gastro-esophageal reflux disease without esophagitis; D64.9 Anemia, unspecified; I48.2 Chronic atrial fibrillation; D69.6 Thrombocytopenia, unspecified; B95.62 Methicillin resistant Staphylococcus aureus infection as the cause of diseases classified elsewhere; Z98.62 Peripheral vascular angioplasty status; Z89.612 Acquired absence of left leg above knee; Z89.611 Acquired absence of right leg above knee; Z90.5 Acquired absence of kidney; Z88.0 Allergy status to penicillin; Z91.048 Other nonmedicinal substance allergy status; Z88.8 Allergy status to other drugs, medicaments and biological substances; Z91.040 Latex allergy status; Z79.01 Long term (current) use of anticoagulants; Z79.899 Other long term (current) drug therapy; Z79.82 Long term (current) use of aspirin; Z87.891 Personal history of nicotine dependence; I25.2 Old myocardial infarction; Z82.49 Family history of ischemic heart disease and other diseases of the circulatory system
CPT/HCPCS: 36415; 36569; 71275; 76937; 77001; 80048; 82565; 84520; 85025; 85027; 85610; 85730; 86403; 86850; 86900; 86901; 87075; 87116; 87186; 88300; 88302; C1751; C1769; C1894; J1170; J1200; J1644; J1956; J2250; J2370; J2405; J2704; J2710; J3010; J3370; J7030; J7040; J7050; Q9966; Q9967